=== PATIENT | male | born 1995 | race Caucasian/White ===

== ENCOUNTER 2018-01-31 22:33 | Emergency (ER) | payer OTHER ==
[~2018-01-31] VITALS: Ht 182.9 cm; Wt 78.0 kg
[2018-02-01] MEDS ORDERED: NAPROSYN500 MG PO (00:19)
[2018-02-01 00:32] VITALS: BP 154/89
== END 2018-02-01 00:33 | disposition home or self-care (01) ==
LOC: EME 22:33
DX: S80.01XA Contusion of right knee, initial encounter (principal); M23.91 Unspecified internal derangement of right knee; V49.40XA Driver injured in collision with unspecified motor vehicles in traffic accident, initial encounter; Y92.410 Unspecified street and highway as the place of occurrence of the external cause
CPT/HCPCS: 73564; 99281; 99284